=== PATIENT | female | born 2000 | race Caucasian/White ===

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

== ENCOUNTER 2022-10-01 07:27 | Emergency (ER) | payer BC, SELFPAY ==
[2022-10-01 07:41] VITALS: BP 106/54; PULSE 93; RESP 19; TEMP 36.6; O2SAT 98; BMI 21.9
--- NOTE | 2022-10-01 07:55 | ED_ITS ---
HPI - General Adult General Chief complaint: General Medical Stated complaint: high white blood cell count Time Seen by Provider: 10/01/22 07:55 History of Present Illness HPI narrative: Patient no significant past medical history having headache for last 5 days with light sensitivity headache localized to front part of the head also complaining of body aches without any joint swelling patient was seen by PCP with the labs yesterday which were normal started on doxycycline positive possible Lyme disease patient complaining of neck pain early today when she woke up had nausea no vomiting no fever no chills no other family member sick Related Data Previous Rx's Medication Instructions Recorded [id number] 1 cap PO Q6H PRN headache #20 caps 10/01/22 50 mg-300 mg-40 mg capsule (Fioricet) ondansetron 4 mg disintegrating 4 mg PO Q6-8H PRN nausea and 10/01/22 tablet vomiting #7 tabs sumatriptan succinate 50 mg tablet 50 mg PO Q2H PRN migraine headache 10/01/22 (Imitrex) #10 tabs Allergies Allergy/AdvReac Type Severity Reaction Status Date / Time No Known Allergies Allergy Verified 10/01/22 07:36 Review of Systems Review of Systems: Yes all other systems are reviewed and are negative [facility] Social History Social History Alcohol intake: current Alcohol intake frequency: holidays/special occasions only Smoked in Last 30 Days: No Advance Directives: No Advance Directives Information Provided: Yes Physical Exam ED Vital Signs: Vital Signs - 24 hr 10/01/22 07:41 Temperature 98 F Pulse Rate 93 Respiratory Rate 19 Blood Pressure 106/54 L Pulse Oximetry 98 Oxygen Delivery Method Room Air BMI result Body Mass Index 21.9 Appearance: Alert. Oriented X3. No acute distress. Eyes: No pallor or icterus ENT: Pharynx normal. Oral Mucosa moist Neck: Normal inspection. Neck supple. Kernig's and Brudzinski's signs negative CVS: Normal heart rate and rhythm. Pulses normal. Respiratory: No respiratory distress. Equal air entry bilateral, no wheezing/rales/rhonchi Abdomen: Soft and nontender. Bowel sounds are present, no mass palpable, no CVA tenderness Skin: Skin warm and dry. Normal skin color. Normal skin turgor. Extremities: No lower extremity edema. No calf tenderness Neuro: Oriented X 3. No motor deficit. No sensory deficit.No cerebellar signs , cranial nerves II-XII intact Medications Administered Discontinued Medications Generic Name Dose Route Start Last Admin Trade Name Chivoq PRN Reason Stop Dose Admin Ondansetron HCl 4 mg 10/01/22 08:04 10/01/22 08:27 Ondansetron Odt 4 Mg Tab.Rapdis TRANSLINGU 10/01/22 08:05 4 mg ONCE ONE Administration Sumatriptan Succinate 6 mg 10/01/22 08:04 10/01/22 08:27 Sumatriptan Succinate 6 Mg/0.5 Ml Vial SUBCUT 10/01/22 08:05 6 mg ONCE ONE Administration Medical Decision Making Medical Decision Making [facility] Narrative: Patient clinically have migraine headache will try Imitrex 09:00 Patient felt better after a Mitek discharge patient home on Imitrex tablets and Fioricet. Discharge Plan Discharge Clinical Impression: Headache, migraine Patient Disposition: Home, Self-Care Instructions: Migraine Headache (ED) Additional Instructions: Take Imitrex 1 tablet at onset of headache may repeat another tablet in 2 hours if headache continues cannot take more than 2 tablets in 24 hours If headache continues take Fioricet 1 tablet every 6 hours as needed Follow with PCP Prescriptions: New sumatriptan succinate [Imitrex] 50 mg tablet 50 mg PO Q2H PRN (Reason: migraine headache) Qty: 10 0RF Rx Instructions: do not exceed 2 doses per 24 hrs ondansetron 4 mg tablet,disintegrating 4 mg PO Q6-8H PRN (Reason: nausea and vomiting) Qty: 7 0RF [id number] [Fioricet] 50-300-40 mg capsule 1 cap PO Q6H PRN (Reason: headache) Qty: 20 0RF Stand Alone Forms: Work/School Release
[2022-10-01] MEDS: Ondansetron ODT 4 MG TAB.RAPDIS TRANSLINGU (08:27)
[2022-10-01] MEDS: SUMAtriptan succinate 6 MG/0.5 ML VIAL SUBCUT (08:27)
--- NOTE | 2022-10-01 08:32 | PC.NURSE ---
Pt is a/ox4, reporting [id number], neck pains starting this morning, denying vision changes, weakness/numbness, strengths equal. Nausea reported with ESPINOZA. orders placed by MD. Awaiting disposition at this time
[2022-10-01] MEDS: Butalb/Acetamin/Caff 50/325/40 TABLET 1 TAB PO (09:07)
[2022-10-01 09:11] VITALS: BP 105/65; PULSE 70; RESP 18; TEMP 36.6; O2SAT 100
== END 2022-10-01 09:14 | disposition home or self-care (01) ==
PROVIDERS: Emergency Provider Internal Medicine
DX: G43.909 Migraine, unspecified, not intractable, without status migrainosus (principal)
CPT/HCPCS: 96372; 99284; J3030